=== PATIENT | female | born 2000 | race Two or more races ===

== ENCOUNTER → 2021-03-26 | Emergency (ER) | payer MEDICAID, OTHER ==
[~2021-03-26] VITALS: Ht 170.2 cm; Wt 77.1 kg
[2021-03-26 17:16] VITALS: BP 125/87
== END | disposition left against medical advice (07) ==
LOC: ER 16:29 → EDSEX 16:29
DX: M79.602 Pain in left arm (principal); Z53.21 Procedure and treatment not carried out due to patient leaving prior to being seen by health care provider